=== PATIENT | male | born 1965 | race African-American/Black ===

== ENCOUNTER 2024-11-04 08:11 | Emergency (ER) | payer OTHER ==
[~2024-11-04] VITALS: Ht 165.1 cm; Wt 68.1 kg
[2024-11-04 08:53] VITALS: BP 133/86; PULSE 87; RESP 18; TEMP 98.5; O2SAT 96
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
[2024-11-04] MEDS ORDERED: IBU600T PO (10:50)
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
== END 2024-11-04 10:50 | disposition home or self-care (01) ==
LOC: ER 08:11
DX: M50.30 Other cervical disc degeneration, unspecified cervical region (principal)
CPT/HCPCS: 72040; 73020